=== PATIENT | female | born 1975 | race Caucasian/White ===

== ENCOUNTER 2016-11-11 19:14 | Emergency (ER) | payer OTHER ==
[~2016-11-11] VITALS: Ht 167.6 cm; Wt 88.2 kg
[~2016-11-11 19:14] MED LIST: ALEVE220 MG PO; TRI-SPRINTEC1 EACH PO; TUMS500 MG PO
[2016-11-11 20:21] LABS: HEMATOCRIT 39.5 % (36.0-46.0); MCH 28.8 PG (29.0-34.0); MCHC 33.2 G/DL (30.0-36.0); MCV 86.8 FL (83-99); MEAN PLAT.VOLUME 9.6 uM^3 (9.5-12.4); PLATELET COUNT 396 K/uL (156-360); RBC DIS.WIDTH-CV 12.9 % (11.8-14.6); RBC DIS.WIDTH-SD 40.4 % (39-53); RED BLOOD COUNT 4.55 M/uL (3.80-5.20); WHITE BLOOD COUNT 11.8 K/uL (4.1-10.2)
[2016-11-11 20:34] LABS: CHLORIDE 105 mEq/L (99-109); SODIUM 139 mEq/L (136-147)
[2016-11-11 20:35] LABS: GLUCOSE 100 mg/dL (70-99)
[2016-11-11 20:37] LABS: ANION GAP 11 MEQ/L (2-14)
[2016-11-11 20:39] LABS: GFR ESTIMATE (CALCULATED) > 59 mL/min/
[2016-11-11 20:40] LABS: UREA NITROGEN (BUN) 11 mg/dL (9-23)
[2016-11-11 21:16] VITALS: BP 128/86
== END 2016-11-11 21:41 | disposition home or self-care (01) ==
LOC: EME 19:14
PROVIDERS: Physician Assistant
DX: H43.393 Other vitreous opacities, bilateral (principal)
CPT/HCPCS: 80048; 85027; 93005; 99281; 99282